=== PATIENT | male | born 1995 | race American Indian/Alaskan Native ===

== ENCOUNTER 2022-04-18 11:56 | Emergency (ER) | payer SELFPAY ==
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
[2022-04-18] MEDS: KETOROLAC 30 MG/1 ML INJ IM ONE (18:24)
[2022-04-18 18:38] VITALS: BP 128/85
== END 2022-04-18 18:37 | disposition home or self-care (01) ==
LOC: ED 11:56
DX: M79.642 Pain in left hand (principal); M79.641 Pain in right hand; M25.562 Pain in left knee; M25.561 Pain in right knee; V89.2XXA Person injured in unspecified motor-vehicle accident, traffic, initial encounter; Y93.89 Activity, other specified; Y92.89 Other specified places as the place of occurrence of the external cause; Y99.8 Other external cause status
CPT/HCPCS: 96372; 99282; J1885